=== PATIENT | female | born 1955 | race Caucasian/White ===

== ENCOUNTER 2018-07-29 07:25 | Day surgery (SDC) | payer OTHER ==
[2018-07-29] MEDS ORDERED: LR 1,000 ML IV ONE (07:39)
[2018-07-29] MEDS ORDERED: LIDOCAINE 1% 2 ML INJ ID PRN (07:39)
[2018-07-29] MEDS ORDERED: PROPOFOL 200 MG/20 ML VIAL ONE (09:08)
[2018-07-29] MEDS ORDERED: ONDANSETRON 4 MG/2 ML VIAL IVP PRN (09:20)
[2018-07-29] MEDS ORDERED: ACETAMINOPHEN 500 MG TAB PO PRN (09:20)
[2018-07-29] MEDS ORDERED: METOCLOPRAMIDE 10 MG/2 ML VIAL IVP PRN (09:20)
[2018-07-29] MEDS ORDERED: NALOXONE HCL 0.4 MG/ML INJ IVP PRN (09:20)
[2018-07-29] MEDS ORDERED: LR 500 ML IV PRN (09:20)
[2018-07-29] MEDS ORDERED: fentaNYL 100 MCG/2 ML INJ IVP PRN (09:20)
[2018-07-29] MEDS ORDERED: oxyCODONE IR 5 MG TAB PO PRN (09:20)
[2018-07-29] MEDS ORDERED: HYDROCODONE/APAP 5/325 TAB PO PRN (09:20)
== END 2018-07-29 10:45 | disposition home or self-care (01) ==
DX: R19.4 Change in bowel habit (principal); K57.30 Diverticulosis of large intestine without perforation or abscess without bleeding; D12.5 Benign neoplasm of sigmoid colon; Z85.038 Personal history of other malignant neoplasm of large intestine